=== PATIENT | male | born 1980 | race Caucasian/White ===

== ENCOUNTER 2019-10-10 16:01 | Emergency (ER) | payer OTHER, SELFPAY ==
--- NOTE | ~2019-10-10 | XR_ITS ---
XR ankle RT min 3V DATE: 10/10/2019 16:25 INDICATION: Twisting injury, lateral pain. TECHNIQUE: 4 views COMPARISON: None FINDINGS: There is prominent anterolateral soft tissue swelling and evidence of ankle joint effusion. There is suggestion of small cortical avulsion fracture from the distal anterior margin of the tibia. Otherwise no fracture or dislocation of the ankle or disruption of the ankle mortise is detected. IMPRESSION: Probable small cortical avulsion fractures from the anterior distal tibial epiphysis area . Ankle joint effusion and anterolateral ankle soft tissue swelling Reviewed, dictated and finalized at location B. MANAGER IMPRESSION: Probable small cortical avulsion fractures from the anterior distal tibial epiphysis area. Ankle joint effusion and anterolateral ankle soft tissue swelling
[2019-10-10 16:25] VITALS: BP 133/81; PULSE 96; RESP 20; TEMP 36.7; O2SAT 99
[2019-10-10] MEDS: KETOROLAC 30 MG/ML VIAL (*BKC) 60 MG IM (17:19)
--- NOTE | 2019-10-10 17:25 | ED.LOWEXIN ---
HPI - Extremity Injury (Lower) General Chief Complaint: Extremity Injury, Lower Stated Complaint: r ankle pain Time Seen by Provider: 10/10/19 16:55 Source: patient Mode of arrival: other ( Antalgic gait) Limitations: other ( ankle pain) History of Present Illness HPI Narrative: Osmani is a 38-year-old male patient he states that just prior to coming to the emergency room, he jumped into a ditch and twisted his right ankle. He he twisted it inward. He has swelling to the lateral malleolus. There is no open wound. He rates the pain 8 8 or 9. No history of previous injury to the ankle. MD complaint: ankle injury Onset (ago): minute(s) ( Just [employer]) Injury: Right: ankle Type of Injury: inversion Place: other ( jumped into a ditch) Severity: moderate Severity scale (1-10): 8 Relieving factors: other ( better with rest and elevation and better after Toradol injection.) Exacerbating factors: weight bearing, movement and palpation Context: jumping and other ( See HPI narrative) Associated symptoms: swelling, able to partially bear weight and other ( antalgic gait) Other symptoms: other ( no other symptoms) Treatments prior to arrival: other ( none) Review of Systems Review of Systems: All systems reviewed & are unremarkable except as noted in HPI and below Constitutional: Constitutional: Reports no additional constitutional complaints, Denies chills and Denies fever(s) Eyes: Eyes: Reports as per HPI and Denies change in vision ENT: Reports system reviewed and no additional complaints, except as documented, Denies dizziness and Denies sore throat Cardiovascular: Cardiovascular: Reports as per HPI, Reports no additional cardiovascular complaints, Denies chest pain and Denies radiating jaw, neck or arm pain Respiratory: Respiratory: Reports as per HPI, Denies cough and Denies dyspnea Gastrointestinal: Gastrointestinal: Reports as per HPI, Denies abdominal pain, Denies nausea and Denies vomiting Genitourinary: Genitourinary: Reports no additional male genitourinary complaints Musculoskeletal: Musculoskeletal: Reports no additional musculoskeletal complaints and Denies back pain Comments: pain and swelling to right ankle Neurologic: Reports system reviewed and no additional complaints, except as documented, Denies vertigo, Denies dizziness, Denies syncope and Denies focal weakness Psychiatric: Psychiatric: Reports no additional psychiatric complaints and Reports anxiety Endocrine: Endocrine: Reports no additional endocrine complaints and Denies polydipsia Hematologic/Lymphatic: Hematologic/Lymphatic: Reports no additional hematologic/lymphatic complaints, Denies easy bleeding and Denies easy bruising Allergic/Immunologic: Allergic/Immunologic: Reports no additional allergic/immunologic complaints, Denies lip swelling and Denies tongue swelling PMFSH Past Medical History Medical History (Updated 10/10/19 @ 18:49 by Mike Westfall MD) No pertinent past medical history Surgical History Surgical History (Updated 10/10/19 @ 17:31 by Mike Westfall MD) History of appendectomy Family History Family History (Updated 10/10/19 @ 17:31 by Mike Westfall MD) Mother No problems noted. Father No problems noted. Social History Social History (Updated 10/10/19 @ 17:32 by Mike Westfall MD) Smoking status: Current every day smoker Additional smoking assessment comments: smokes 1 pack per day Alcohol use details: denies alcohol use Substance use: never Exam Const: General: no acute distress ( moderate distress); No diaphoretic Nutritional Appearance: thin Orientation/consciousness: patient oriented x3 Limitations: physical limitations ( antalgic gait due to ankle pain) HENMT: Head: normal to inspection Ears: TM's normal bilaterally and EAC's normal General nose exam: Normal nares present Mouth: Yes moist mucous membranes Eyes: Pupils: Equal, round and reactive pupils present
--- NOTE | 2019-10-10 18:01 | PC.NURSE ---
DR JIMENEZ CALLED FOR ORTHO CONSULT
[2019-10-10 19:09] VITALS: RESP 15
== END 2019-10-10 19:10 | disposition home or self-care (01) ==
PROVIDERS: Emergency Provider Surgery; PCP Internal Medicine
DX: S93.401A Sprain of unspecified ligament of right ankle, initial encounter (principal); X50.1XXA Overexertion from prolonged static or awkward postures, initial encounter
CPT/HCPCS: 73610; 96372; 99282; 99283; J1885; L2112

== ENCOUNTER 2020-01-27 13:43 | Emergency (ER) | payer OTHER, SELFPAY ==
--- NOTE | 2020-01-27 13:46 | ED.OVERDOSE ---
HPI - Overdose General Chief Complaint: Overdose Stated Complaint: ambulance Time Seen by Provider: 01/27/20 13:45 Source: patient and EMS Mode of arrival: EMS Limitations: no limitations History of Present Illness HPI Narrative: Patient found unresponsive and a call our with windows rolled up. Initially had oral airway placed. Here is bagged and then given Narcan for possible drug abuse. He responded but continued to be confused. Patient now breathing on his own without any difficulty. He is oriented he knows where he is at. complaint: accidental overdose Onset (ago): hour(s) (1) Timing confirmed by: family member Intent: other (Chronic drug use) How Overdose Was Discovered: family/friend present at time Context: Accidental Overdose: wanted to get high (Inhaled Heroin) Associated symptoms: paranoia and lethargy Treatments Prior to Arrival: oxygen and narcan (4 mg) Related Data Home Medications Medication Instructions Recorded Confirmed No Home Medications 01/27/20 01/27/20 Allergies Allergy/AdvReac Type Severity Reaction Status Date / Time No Known Allergies Allergy Verified 01/27/20 13:50 Review of Systems Constitutional: Constitutional: Reports chills Eyes: Eyes: Reports no additional eye complaints Cardiovascular: Cardiovascular: Reports no additional cardiovascular complaints PMFSH Past Medical History Medical History No pertinent past medical history Surgical History Surgical History History of appendectomy Family History Family History Mother No problems noted. Father No problems noted. Social History Social History (Updated 01/27/20 @ 14:00 by Marvin Bartholomew MD) Smoking status: Current every day smoker Additional smoking assessment comments: smokes 1 pack per day Alcohol intake: unknown Substance use: current Substance use type: heroin and inhalants Exam Const: General: no acute distress and confusion Nutritional Appearance: thin Orientation/consciousness: patient oriented x3 Limitations: altered mental status HENMT: Head: normal to inspection Ears: external ears normal General nose exam: Normal external nose present Face and sinus: normal facial exam Mouth: Yes lip normal Eyes: Conjunctivae: conjunctivae normal Pupils: Dilated pupils bilaterally EOM: EOMs intact bilaterally Neck: Neck: normal visual inspection Resp: Effort & Inspection: normal respiratory effort Auscultation: clear to auscultation bilaterally Cardio: Rate: regular rate Rhythm: regular rhythm GI: GI Palp: Yes Soft to palpation Auscultation: normal bowel sounds Back/Spine/Pelvis: Cervical Spine: cervical ROM normal Thoracic/Lumbar Spine: thoraco-lumbar ROM normal Skin: General skin exam: normal color Rashes: no rashes Neuro: General: patient oriented x3, moves all extremities and no focal motor deficits Motor exam (neuro): 5/5 motor strength present throughout Extrem: General: normal to inspection and no pedal edema Psych: Appearance: disheveled Attitude: cooperative Thought content: Yes Hallucination(s) present ( Auditory) Course Course Emergency Course: patient refused IV for IV fluids. I felt that he should have some IV fluids since he was sitting in a hot car when he was discovered. Patient eloped out the back door. Vital Signs Vital signs: Vital Signs Temperature 36.4 C L 01/27/20 13:51 Pulse Rate 91 01/27/20 13:51 Respiratory Rate 14 01/27/20 13:51 Blood Pressure 176/94 H 01/27/20 13:51 Pulse Oximetry 95 01/27/20 13:51 Temperature 36.4 C L 01/27/20 13:51 Pulse Rate 91 01/27/20 13:51 Respiratory Rate 14 01/27/20 13:51 Blood Pressure 176/94 H 01/27/20 13:51 Pulse Oximetry 95 01/27/20 13:51 MDM - Overdose Lab Data Result diagrams: 01/27/20 14:09
[2020-01-27 13:51] VITALS: BP 176/94; PULSE 91; RESP 14; TEMP 36.4; O2SAT 95
[2020-01-27 14:13] LABS: Basophils Absolute Auto 0.02 K/mm3 (0.00-0.10); Basophils Percent Auto 0.4 % (0.0-1.0); Eosinophils Absolute Auto 0.14 K/mm3 (0.02-0.50); Eosinophils Percent Auto 2.9 % (1.0-6.0); Hematocrit 44.1 % (40.0-54.0); Hemoglobin 14.5 g/dL (14.0-18.0); Immature Granulocyte Absolute 0.04 K/mm3 (0.00-0.00); Immature Granulocyte Percent A 0.8 % (0.0-0.0); Lymphocytes Absolute Auto 1.49 K/mm3 (1.10-4.50); Lymphocytes Percent Auto 31.1 % (18.0-42.0); Mean Corpuscular HGB Conc 32.9 g/dL (32.0-36.0); Mean Corpuscular Hemoglobin 30.1 pg (27.0-31.0); Mean Corpuscular Volume 91.5 fL (78.0-102.0); Mean Platelet Volume 9.5 fl (8.7-11.0); Monocytes Absolute Auto 0.31 K/mm3 (0.10-0.90); Monocytes Percent Auto 6.5 % (2.0-11.0); Neutrophils Absolute Auto 2.8 K/mm3 (1.7-7.2); Neutrophils Percent Auto 58.3 % (50.0-70.0); Platelet Count Result 311 K/mm3 (150-420); Red Blood Count 4.82 M/mm3 (4.70-6.10); Red Cell Distribution Width 12.4 % (11.6-14.4); White Blood Count 4.8 K/mm3 (4.8-10.8)
[2020-01-27 14:28] LABS: Alanine Aminotransferase 43 U/L (16-63); Albumin Level 4.3 g/dL (3.4-5.0); Alkaline Phosphatase 103 U/L (46-116); Anion Gap 17.7 mmol/L (7-16); Aspartate Amino Transferase 60 U/L (15-37); Bilirubin,Total 0.4 mg/dL (0.00-1.00); Blood Urea Nitrogen 10 mg/dL (7-18); Calcium 9.4 mg/dL (8.5-10.1); Carbon Dioxide 27 mmol/L (21-32); Chloride 101 mmol/L (98-108); Estimated Glomerular Filt Rate 58; Glucose 246 mg/dL (70-99); Magnesium 2.4 mg/dL (1.8-2.4); Osmolality Calculated 301 mOsm/kg (285-295); Potassium 3.7 mmol/L (3.5-5.1); Salicylate 3.9 mg/dL (2.8-20.0); Sodium 142 mmol/L (136-145); Total Protein 7.6 g/dL (6.4-8.2)
[2020-01-27 14:29] LABS: Acetaminophen 0 ug/mL (10-30); Ethanol < 3 mg/dL (0-6)
[2020-01-27 15:06] LABS: Hemoglobin A1C 5.6 % (<5.7)
--- NOTE | 2020-01-27 15:14 | PC.NURSE ---
IV/IV FLUIDS OFFERED - PT REFUSED
[2020-01-27 15:51] LABS: Amphetamine Screen Urine Positive (Negative); Barbiturate Screen Urine Negative (Negative); Benzodiazepines Screen Urine Negative (Negative); Cannabinoid Screen Urine Positive (Negative); Cocaine Screen Urine Negative (Negative); Methadone Screen Urine Negative (Negative); Opiate Screen Urine Negative (Negative); Phencyclidine Screen Urine Negative (Negative)
--- NOTE | 2020-01-27 16:07 | PC.NURSE ---
PT WALKED TO BATHROOM, NOW NOT FOUND IN THE DEPARTMENT - APPARENT ELOPEMENT
--- NOTE | 2020-01-27 16:18 | PC.NURSE ---
[facility] BRINGS PATIENT BACK IN TO AWAIT INVOLUNTARY ADMISSION - PT MOOD HAS ESCALATED, PT SCREAMING AT TRAVEL SERVICES PROFESSIONAL - AWAITING MOTHER TO FILL OUT PETITION
== END 2020-01-27 16:05 | disposition left against medical advice (07) ==
PROVIDERS: Emergency Provider Emergency Medicine; PCP Internal Medicine
DX: T50.901A Poisoning by unspecified drugs, medicaments and biological substances, accidental (unintentional), initial encounter (principal)
CPT/HCPCS: 36415; 80053; 80307; 83036; 83735; 85025; 99282; 99283

== ENCOUNTER 2020-03-01 14:43 | Emergency (ER) | payer OTHER, SELFPAY ==
[2020-03-01 14:43] VITALS: BP 97/68; PULSE 99; RESP 22; TEMP 36.6; O2SAT 96
[2020-03-01 14:51] VITALS: RESP 22; O2SAT 96
--- NOTE | 2020-03-01 15:04 | PC.NURSE ---
1450 PT STATES HE DOES NOT WANT TREATMENT AT [facility] AND DOES NOT WANT TO SEE THE ERP FOR MEDICAL EVALUATION AND IS SIGNING OUT AGAISNT MEDICAL ADVICE RIGHT NOW. RN ATTEMPTED TO EDUCATE PATIENT WITHOUT SUCCESS. PT IS ALERT AND ORIENTED X3 AND ABLE TO MAKE ALL DECISIONS. PT SIGNED AMA FORM, IV ACCESS WAS REMOVED, AND PT AMBULATED FROM THE BUILDING WITH ALL BELONGINGS.
--- NOTE | 2020-03-01 15:06 | PC.NURSE ---
E-CIGARETTE/VAPE PEN LEFT IN THE BED, ATTEMPTED TO CALL PHONE NUMBER WITH NO SUCCESS.
== END 2020-03-01 14:51 | disposition left against medical advice (07) ==
LOC: CHSED 14:47
PROVIDERS: Emergency Provider Emergency Medicine
DX: Z53.8 Procedure and treatment not carried out for other reasons (principal)
CPT/HCPCS: 99199

== ENCOUNTER 2020-05-09 12:40 | Emergency (ER) | payer OTHER, SELFPAY ==
[2020-05-09 12:40] VITALS: BP 146/96; PULSE 86; RESP 16; TEMP 36.7; O2SAT 98
--- NOTE | 2020-05-09 13:03 | ED.DENTAL ---
HPI - Dental/Oral General Chief complaint: Dental/Oral Stated complaint: tooth ache Time Seen by Provider: 05/09/20 13:03 History of Present Illness HPI Narrative: 39-year-old male patient is here with pain in the right upper molars. He states that the pain started yesterday and this morning he woke up with swelling of the right cheek and his right eye almost shut. He denies any fever or chills. He states that he has had some trouble with his teeth in the past and he is planning to see a dentist in the near future. He denies any known drug allergies. He does admit to smoking and using marijuana. He denies any other drugs. Related Data Allergies Allergy/AdvReac Type Severity Reaction Status Date / Time No Known Allergies Allergy Verified 01/27/20 13:50 Review of Systems Review of Systems: All systems reviewed & are unremarkable except as noted in HPI and below PMFSH Past Medical History Medical History No pertinent past medical history Surgical History Surgical History History of appendectomy Family History Family History Mother No problems noted. Father No problems noted. Social History Social History Smoking status: Current every day smoker Additional smoking assessment comments: smokes 1 pack per day Alcohol intake: unknown Substance use: current Substance use type: heroin and inhalants Exam Const: General: no acute distress and alert Orientation/consciousness: patient oriented x3 HENMT: Other: Patient has an obvious right facial swelling extending into the infraorbital area. No erythema is noted to the swelling. There is mild tenderness on palpation. Pupils are equal and reactive. Patient does have very poor dentition with a lot of teeth missing and Oddi gave to the base. Of significance is that the patient has no teeth from 1-3 and then 4 and 5 are severely decayed. No specific gingival margin inflammation or redness is noted. Resp: Effort & Inspection: normal respiratory effort Auscultation: clear to auscultation bilaterally Cardio: Rate: regular rate Neuro: General: patient oriented x3 and moves all extremities Speech: normal speech Gait exam (Neuro): Normal gait present Extrem: General: normal to inspection Psych: Mental Status: mental status grossly normal Course Course Emergency Course: Patient is aware of the discharge plans and medications will be prescribed. He has been encouraged to follow-up with a dentist. Vital Signs Vital signs: Vital Signs Temperature 36.7 C 05/09/20 12:40 Pulse Rate 86 05/09/20 12:40 Respiratory Rate 16 05/09/20 12:40 Blood Pressure 146/96 H 05/09/20 12:40 Pulse Oximetry 98 05/09/20 12:40 Temperature 36.7 C 05/09/20 12:40 Pulse Rate 86 05/09/20 12:40 Respiratory Rate 16 05/09/20 12:40 Blood Pressure 146/96 H 05/09/20 12:40 Pulse Oximetry 98 05/09/20 12:40 Discharge Plan Discharge Clinical Impression: Toothache, Dental abscess, Dental caries Patient Disposition: Home, Self-Care Condition: Stable Instructions: Antibiotic Form Additional Instructions: Soft diet Stay well hydrated. Tylenol 500 mg and Ibuprofen 400 mg every 8 hours as needed for pain. Follow up with the dentist in 5-7 days or sooner if worse. Prescriptions: New clindamycin HCl 150 mg capsule 150 mg PO Q6H 10 Days Qty: 40 RF: 0 Follow-up/Referrals: UNKNOWN,DOCTOR [Primary Care Provider] - Stand Alone Forms: Work/School Release IP Time of Disposition: 13:18
[2020-05-09] MEDS: KETOROLAC (*BKC) 60 MG/2 ML VIAL IM (13:15)
[2020-05-09 13:45] VITALS: BP 139/79; PULSE 90; RESP 15; O2SAT 100
== END 2020-05-09 13:48 | disposition home or self-care (01) ==
PROVIDERS: Emergency Provider Emergency Medicine
DX: K04.7 Periapical abscess without sinus (principal); K02.9 Dental caries, unspecified
CPT/HCPCS: 96372; 99283; J1885

== ENCOUNTER 2020-06-04 12:44 | Emergency (ER) | payer OTHER, SELFPAY ==
--- NOTE | ~2020-06-04 | XR_ITS ---
EXAMINATION: XR ankle RT min 3V EXAM DATE: 06/04/2020 13:17 INDICATION: Initial encounter following injury, with pain of the right ankle. Injury 2 days ago. TECHNIQUE: Right ankle frontal, lateral and oblique projections obtained and reviewed. Comparison is made to prior examination from 10/10/2019. FINDINGS: The right ankle mortise appears intact. Small ossification anterior to the tibial tip seen on lateral could be sequela from the injury in October. There are no acute fractures or dislocation s identified. There is no subcutaneous gas. The soft tissue is unremarkable. There are no radiopa que foreign bodies. IMPRESSION: No acute osseous findings. Reviewed, dictated and finalized at location A. IMPRESSION: No acute osseous findings.
--- NOTE | ~2020-06-04 | XR_ITS ---
EXAMINATION: XR shoulder LT min 2V DATE: 06/04/2020 13:18 INDICATION: Left shoulder pain. TECHNIQUE: 4 views of left shoulder were obtained. COMPARISON: None. FINDINGS: Bone alignment is normal. No fracture. Acromioclavicular joint is normal. There is mild gle nohumeral joint osteoarthritis characterized by tiny marginal osteophytes. IMPRESSION: 1. Mild left glenohumeral joint osteoarthritis. Reviewed, dictated and finalized at location A.
[2020-06-04 13:03] VITALS: BP 122/78; PULSE 101; RESP 18; TEMP 37.2; O2SAT 94
--- NOTE | 2020-06-04 13:30 | ED.LOWEXIN ---
HPI - Extremity Injury (Lower) General Chief Complaint: Extremity Injury, Lower Stated Complaint: injury to left shoulder Time Seen by Provider: 06/04/20 13:32 History of Present Illness HPI Narrative: 39-year-old male patient is here with chief complaints of injury to his right ankle and left shoulder after he fell off the roof 2 days ago. Patient states that he was replacing the shingles. He states that he lost the balance and fell and was able to ambulate without any help since then. Patient states that the pain in the right ankle is moderate and he is able to ambulate. He denies any numbness or tingling to his toes or his arm. He denies any other injuries. Denies any of swelling or deformity to the shoulder. He denies any chest injury. He denies any associated shortness of breath. He denies any abdominal pain or injury or injury to the back. Has had an old injury to the right ankle but never a fracture. Related Data Home Medications Medication Instructions Recorded Confirmed No Home Medications 06/04/20 06/04/20 Allergies Allergy/AdvReac Type Severity Reaction Status Date / Time No Known Allergies Allergy Verified 06/04/20 13:10 Review of Systems Review of Systems: All systems reviewed & are unremarkable except as noted in HPI and below [facility] Social History Social History Smoking status: Current every day smoker Additional smoking assessment comments: smokes 1 pack per day Alcohol intake: unknown Substance use: current Substance use type: heroin and inhalants Gender identity (if verbalized by the patient): Male Exam Const: General: no acute distress and alert Orientation/consciousness: patient oriented x3 Eyes: Pupils: Equal, round and reactive pupils present Chest: Chest palpation & inspection: normal inspection of the chest Resp: Effort & Inspection: normal respiratory effort Auscultation: clear to auscultation bilaterally Cardio: Rate: regular rate Rhythm: regular rhythm GI: GI Palp: Yes Soft to palpation and No Tenderness to palpation present (GI) Skin: General skin exam: normal color Rashes: no rashes Wounds: no wounds Extrem: General: normal to inspection and no pedal edema Other: Left Shoulder; no deformity or swelling. No bruising. There is no limitation of the range of motion. Distal neurovascular status is intact. Right Ankle : There is no deformity or swelling. There is some tenderness on palpation of the lateral malleolus in the anterior area. There is no effusion noted. Psych: Mental Status: mental status grossly normal Course Course Emergency Course: An Brigido wrap has been applied to the right ankle. The patient is aware of the negative x-rays as well as the discharge plans. Vital Signs Vital signs: Vital Signs Temperature 37.2 C 06/04/20 13:03 Pulse Rate 101 H 06/04/20 13:03 Respiratory Rate 18 06/04/20 13:03 Blood Pressure 122/78 06/04/20 13:03 Pulse Oximetry 94 06/04/20 13:03 Temperature 37.2 C 06/04/20 13:03 Pulse Rate 101 H 06/04/20 13:03 Respiratory Rate 18 06/04/20 13:03 Blood Pressure 122/78 06/04/20 13:03 Pulse Oximetry 94 06/04/20 13:03 Discharge Plan Discharge Clinical Impression: Ankle sprain and strain, Left shoulder pain Patient Disposition: Home, Self-Care Condition: Stable Instructions: Ankle Sprain (ED), Fall Prevention (ED) Additional Instructions: Take tylenol or Ibuprofen as needed for pain Follow up with your doctor as needed. Prescriptions: No Action No Home Medications RF: 0 Follow-up/Referrals: UNKNOWN,DOCTOR [Primary Care Provider] - Time of Disposition: 13:57
[2020-06-04 14:05] VITALS: RESP 16
== END 2020-06-04 14:05 | disposition home or self-care (01) ==
PROVIDERS: Emergency Provider Emergency Medicine
DX: S93.401A Sprain of unspecified ligament of right ankle, initial encounter (principal); M25.512 Pain in left shoulder; W17.89XA Other fall from one level to another, initial encounter
CPT/HCPCS: 73030; 73610; 99282; 99284

== ENCOUNTER 2020-11-07 11:00 | Emergency (ER) | payer OTHER, SELFPAY ==
[2020-11-07 11:00] VITALS: BP 125/94; PULSE 113; RESP 15; TEMP 36.7; O2SAT 96
[2020-11-07 11:24] VITALS: RESP 17
--- NOTE | 2020-11-07 11:28 | ED.OVERDOSE ---
HPI - Overdose General Chief Complaint: Overdose Stated Complaint: ambulance Time Seen by Provider: 11/07/20 11:28 Source: patient and EMS Mode of arrival: EMS Limitations: no limitations History of Present Illness HPI Narrative: Patient is brought in by EMS. He says he snorted some heroin, and evidently became unresponsive and passed out. He was not breathing well and someone called 911. The paramedics arrived and gave him some Narcan. After this he woke up and was responsive to them. complaint: accidental overdose Onset (ago): minute(s) Intent: other (pain relief) How Overdose Was Discovered: family/friend present at time Context: Accidental Overdose: other (seeking pain relief, ) Treatments Prior to Arrival: oxygen and narcan Related Data Home Medications Medication Instructions Recorded Confirmed No Home Medications 06/04/20 11/07/20 Allergies Allergy/AdvReac Type Severity Reaction Status Date / Time No Known Allergies Allergy Verified 06/04/20 13:10 Review of Systems Constitutional: Constitutional: Reports no additional constitutional complaints Eyes: Eyes: Reports no additional eye complaints ENT: Reports system reviewed and no additional complaints, except as documented Cardiovascular: Cardiovascular: Reports no additional cardiovascular complaints Respiratory: Respiratory: Reports no additional respiratory complaints Gastrointestinal: Gastrointestinal: Reports no additional gastrointestinal complaints Genitourinary: Genitourinary: Reports no additional male genitourinary complaints Musculoskeletal: Musculoskeletal: Reports no additional musculoskeletal complaints Integumentary/Breasts: Skin/Breast: Reports system reviewed and no additional complaints, except as docu Neurologic: Reports system reviewed and no additional complaints, except as documented Psychiatric: Psychiatric: Reports no additional psychiatric complaints Endocrine: Endocrine: Reports no additional endocrine complaints Hematologic/Lymphatic: Hematologic/Lymphatic: Reports no additional hematologic/lymphatic complaints Allergic/Immunologic: Allergic/Immunologic: Reports no additional allergic/immunologic complaints [facility] Past Medical History Medical History (Updated 11/07/20 @ 12:00 by Marvin Whitehead MD) No pertinent past medical history Surgical History Surgical History History of appendectomy Family History Family History Mother No problems noted. Father No problems noted. Social History Social History Smoking status: Current every day smoker Additional smoking assessment comments: smokes 1 pack per day Alcohol intake: unknown Substance use: current Substance use type: heroin and inhalants Gender identity (if verbalized by the patient): Male Exam Const: General: no acute distress and alert Orientation/consciousness: patient oriented x3 HENMT: Head: normal to inspection Ears: external ears normal General nose exam: Normal external nose present Face and sinus: normal facial exam Throat: posterior oropharynx normal Eyes: Conjunctivae: conjunctivae normal Neck: Neck: normal visual inspection Chest: Chest palpation & inspection: normal inspection of the chest Resp: Effort & Inspection: normal respiratory effort Auscultation: clear to auscultation bilaterally Cardio: Rate: regular rate Rhythm: regular rhythm GI: GI Palp: Yes Soft to palpation (nontender) Skin: General skin exam: normal color Neuro: General: patient oriented x3 and moves all extremities Extrem: General: normal to inspection Psych: Appearance: grossly normal Mental Status: mental status grossly normal Thought content: Yes Normal thought content present Course Course Emergency Course: He was wide awake by the time he got here. He denied any th
[2020-11-07 12:05] VITALS: PULSE 100; RESP 20; TEMP 36.7; O2SAT 95
== END 2020-11-07 12:10 | disposition home or self-care (01) ==
PROVIDERS: Emergency Provider Emergency Medicine; PCP Internal Medicine
DX: T50.901A Poisoning by unspecified drugs, medicaments and biological substances, accidental (unintentional), initial encounter (principal)
CPT/HCPCS: 99283; A9270

== ENCOUNTER 2020-11-13 14:59 | Emergency (ER) | payer OTHER, SELFPAY ==
--- NOTE | ~2020-11-13 | XR_ITS ---
EXAMINATION: XR wrist LT min 3V EXAM DATE: 11/13/2020 15:42 INDICATION: No known recent injury provided at this time. Pain of the left wrist, ulna. TECHNIQUE: Left wrist frontal, frontal with ulnar deviation, oblique and lateral projections obtained and reviewed. There is no prior study for comparison. FINDINGS: Left wrist scapholunate joint space is maintained. There are no acute fractures or dislocat ions identified. There is no subcutaneous gas. The soft tissue is unremarkable. There are no radi opaque foreign bodies. IMPRESSION: 1. Unremarkable XR wrist LT min 3V exam. Reviewed, dictated and finalized at location B. 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
[2020-11-13 15:49] VITALS: BP 123/87; PULSE 114; RESP 16; TEMP 36.7; O2SAT 96
--- NOTE | 2020-11-13 16:12 | ED.UPPEXIN ---
HPI - Extremity Injury (Upper) General Chief Complaint: Extremity Injury, Upper Stated Complaint: Hurt L wrist Source: patient Mode of arrival: ambulatory Limitations: no limitations History of Present Illness HPI narrative: was working in the yard and felt a pop and wrist hurt. No real injury, no trauma complaint: injury to: left Other Extremity Injury: Left: wrist Other injuries: none Place: home Severity: mild Relieving factors: none Exacerbating factors: none Associated symptoms: denies other symptoms Related Data Home Medications Medication Instructions Recorded Confirmed No Home Medications 06/04/20 11/07/20 Allergies Allergy/AdvReac Type Severity Reaction Status Date / Time No Known Allergies Allergy Verified 06/04/20 13:10 Review of Systems Review of Systems: All systems reviewed & are unremarkable except as noted in HPI and below PMFSH Past Medical History Medical History No pertinent past medical history Surgical History Surgical History History of appendectomy Family History Family History Mother No problems noted. Father No problems noted. Social History Social History Smoking status: Current every day smoker Additional smoking assessment comments: smokes 1 pack per day Alcohol intake: unknown Substance use: current Substance use type: heroin and inhalants Gender identity (if verbalized by the patient): Male Exam Const: General: no acute distress Nutritional Appearance: thin Orientation/consciousness: patient oriented x3 HENMT: Head: normal to inspection Eyes: Conjunctivae: conjunctivae normal Pupils: Equal, round and reactive pupils present Neck: Neck: normal visual inspection Chest: Chest palpation & inspection: normal inspection of the chest Resp: Effort & Inspection: normal respiratory effort Auscultation: clear to auscultation bilaterally Cardio: Rate: regular rate Rhythm: regular rhythm GI: Inspection: non-distended GI Palp: Yes Soft to palpation and No Tenderness to palpation present (GI) : Testes: Testes normal Skin: General skin exam: normal color Neuro: General: patient oriented x3 and moves all extremities Extrem: General: normal to inspection Other: no swelling, no bruising, no deformity, full ROM Psych: Mental Status: mental status grossly normal Course Vital Signs Vital signs: Vital Signs Temperature 36.7 C 11/13/20 15:49 Pulse Rate 114 H 11/13/20 15:49 Respiratory Rate 16 11/13/20 15:49 Blood Pressure 123/87 11/13/20 15:49 Pulse Oximetry 96 11/13/20 15:49 Temperature 36.7 C 11/13/20 15:49 Pulse Rate 114 H 11/13/20 15:49 Respiratory Rate 16 11/13/20 15:49 Blood Pressure 123/87 11/13/20 15:49 Pulse Oximetry 96 11/13/20 15:49 Discharge Plan Discharge Patient Disposition: Home, Self-Care Condition: Stable Instructions: Antibiotic Form Prescriptions: No Action No Home Medications RF: 0 Follow-up/Referrals: Donny Garcia MD [Primary Care Provider] - Time of Disposition: 16:15
== END 2020-11-13 16:18 | disposition home or self-care (01) ==
PROVIDERS: Emergency Provider Emergency Medicine; PCP Internal Medicine
DX: M79.602 Pain in left arm (principal)
CPT/HCPCS: 73110; 99282; 99283

== ENCOUNTER 2021-06-14 15:15 | Emergency (ER) | payer OTHER, SELFPAY ==
[2021-06-14 15:30] VITALS: BP 127/80; PULSE 82; RESP 14; TEMP 36.8; O2SAT 98
--- NOTE | 2021-06-14 16:31 | ED.DENTAL ---
HPI - Dental/Oral General Chief complaint: Dental/Oral Stated complaint: abscess tooth Time Seen by Provider: 06/14/21 15:17 Source: patient and RN notes reviewed Mode of arrival: ambulatory Limitations: no limitations History of Present Illness Complaint: tooth pain Location: Tooth # (16) Onset (ago): day(s) (1) Duration: constant Severity: moderate Severity scale (1-10): 6 Relieving factors: nothing Exacerbating factors: chewing Context: history of dental caries Associated symptoms: ear pain Treatment prior to arrival: none Related Data Allergies Allergy/AdvReac Type Severity Reaction Status Date / Time No Known Allergies Allergy Verified 06/14/21 16:41 Review of Systems Review of Systems: All systems reviewed & are unremarkable except as noted in HPI and below ENT: Reports as per HPI (toothache.) [facility] Past Medical History Medical History Dental caries Toothache Exam Const: General: no acute distress and alert Nutritional Appearance: well nourished Orientation/consciousness: patient oriented x3 Limitations: no limitations HENMT: Head: normal to inspection Ears: external ears normal and TM's normal bilaterally General nose exam: Normal external nose present and Normal nares present Face and sinus: normal facial exam Mouth: Yes moist mucous membranes Other: no acute facial swelling or tenderness Eyes: Conjunctivae: conjunctivae normal Pupils: Equal, round and reactive pupils present EOM: EOMs intact bilaterally Neck: Neck: normal visual inspection and no lymphadenopathy Chest: Chest palpation & inspection: normal inspection of the chest Resp: Effort & Inspection: normal respiratory effort Auscultation: clear to auscultation bilaterally Cardio: Rate: regular rate Rhythm: regular rhythm GI: GI Palp: Yes Soft to palpation and No Tenderness to palpation present (GI) Percussion: Yes normal to percussion : General: Yes no CVA tenderness Male General Exam: Yes normal external exam Testes: Testes normal Back/Spine/Pelvis: Back: no CVA tenderness Skin: General skin exam: normal color Rashes: no rashes Neuro: General: patient oriented x3, moves all extremities, no meningeal signs, no focal motor deficits and CN's II-XI intact bilaterally Extrem: General: normal to inspection and no pedal edema Psych: Appearance: grossly normal and well kempt Mental Status: mental status grossly normal Affect: normal affect Thought content: Yes Normal thought content present Course Course Emergency Course: pt was stable and less pain-ful in the ED> Reevaluation(s) Date: 06/14/21 Time: 15:58 Vital Signs Vital signs: Vital Signs Temperature 36.8 C 06/14/21 15:30 Pulse Rate 82 06/14/21 15:30 Respiratory Rate 14 06/14/21 15:30 Blood Pressure 127/80 06/14/21 15:30 Pulse Oximetry 98 06/14/21 15:30 Temperature 36.8 C 06/14/21 15:30 Pulse Rate 82 06/14/21 15:30 Respiratory Rate 16 06/14/21 16:45 Blood Pressure 127/80 06/14/21 15:30 Pulse Oximetry 98 06/14/21 15:30 MDM - Dental/Oral Differential Diagnosis Differential diagnosis: Likely dental caries, toothache and dental abscess Medical Records Attestation: I reviewed the patient's medical records. Critical Care Time Critical Care Time Critical Care Time: No Total Critical Care Time: 0 Discharge Plan Discharge Clinical Impression: Toothache, Dental caries Patient Disposition: Home, Self-Care Condition: Stable Instructions: Antibiotic Form, Toothache (ED) Additional Instructions: Home. May RTC prn. PMD in 1-2 days. Rx below. Dentist RUKHSANA Prescriptions: New amoxicillin 875 mg tablet 875 mg PO Q12H Qty: 20 RF: 0 ibuprofen 800 mg tablet 800 mg PO TID Qty: 20 RF: 0 omeprazole magnesium [Prilosec OTC] 20 mg tablet,delayed release (DR/EC) 20 mg PO BID Qty: 20 RF: 0 amoxicillin 875 mg tablet 875 mg PO Q12H Qt
[2021-06-14 16:45] VITALS: RESP 16
[2021-06-14] MEDS: IBUPROFEN 400 MG TABLET 800 MG PO (16:45)
== END 2021-06-14 16:45 | disposition home or self-care (01) ==
PROVIDERS: Emergency Provider Emergency Medicine; PCP Surgery
DX: K08.89 Other specified disorders of teeth and supporting structures (principal); K02.9 Dental caries, unspecified
CPT/HCPCS: 99283; A9270

== ENCOUNTER 2023-04-03 09:50 | Emergency (ER) | payer OTHER, SELFPAY ==
--- NOTE | ~2023-04-03 | XR_ITS ---
EXAMINATION: XR knee LT 3V DATE: 04/03/2023 10:37 INDICATION: Lateral left knee pain post fall TECHNIQUE: AP, lateral and sunrise views of the left knee were obtained COMPARISON: None. FINDINGS: Alignment is normal. No fracture. Joint spaces appear normal. Large left knee joint effusion without layering lipohemarthrosis. Soft tissues are otherwise unremarkable. IMPRESSION: 1. Large left knee joint effusion without osseous abnormality. Reviewed, dictated and finalized at location A.
--- NOTE | ~2023-04-03 | XR_ITS ---
Lumbosacral Spine: AP and lateral views Clinical History: Pain Findings: The normal lordotic curve is maintained. The vertebral bodies and posterior elements are i ntact. The intervertebral disc spaces are preserved. The sacroiliac joints are normally outlined. Impression: No significant abnormality. Reviewed, dictated and finalized at [facility]. Impression: No significant abnormality.
[2023-04-03 09:52] VITALS: BP 119/73; PULSE 117; RESP 18; TEMP 37.7; O2SAT 95
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
[2023-04-03 11:30] VITALS: BP 134/67; PULSE 112; RESP 16; TEMP 36.9; O2SAT 96
--- NOTE | 2023-04-03 11:37 | PC.NURSE ---
spoke with judith at dr alejo office to set up appt for thursday at [facility]. will talk with dr cornelius and call patient to set up appt that is available. pt informed and given number for office. informed patient if no call by 3pm to call office.
== END 2023-04-03 11:30 | disposition home or self-care (01) ==
PROVIDERS: Emergency Provider Internal Medicine Critical Care Medicine; PCP Internal Medicine
DX: M25.462 Effusion, left knee (principal); M54.50 Low back pain, unspecified; V18.0XXA Pedal cycle driver injured in noncollision transport accident in nontraffic accident, initial encounter
CPT/HCPCS: 72100; 73562; 99284; L1830

== ENCOUNTER 2023-12-05 15:25 | Emergency (ER) | payer OTHER, SELFPAY ==
[2023-12-05] VITALS (17 sets, daily range): BP systolic 120–170; BP diastolic 69–88; PULSE 82–110; RESP 12–20; TEMP 36.7; O2SAT 76–98
--- NOTE | ~2023-12-05 | CT_ITS ---
EXAMINATION: CT brain wo con DATE: 12/05/2023 15:57 INDICATION: Drug overdose. TECHNIQUE: Computed tomography (CT) of the head was performed without intravenous contrast. The mA wa s adjusted according to patient size. Iterative reconstruction technique was employed. The dose-lengt h product was 605.33 mGy-cm. COMPARISON: None FINDINGS: There is no intracranial hemorrhage, acute infarction, or abnormal intracranial mass lesion . The ventricles are normal in size. The orbits are normal. The paranasal sinuses are clear. The mast oid air cells are normal. There is cerumen in the external auditory canals. IMPRESSION: 1. Normal brain. Reviewed, dictated and finalized at location A. IMPRESSION: 1. Normal brain.
--- NOTE | 2023-12-05 15:29 | ECG_ITS ---
Measurements Intervals [place] Rate: 93 P: 19 OR: 165 QRS: 13 QRSD: 90 T: 23 QT: 350 QTc: 436 Interpretive Statements SINUS RHYTHM VENTRICULAR PREMATURE COMPLEX BORDERLINE T WAVE ABNORMALITY- INFERIOR LEADS BASELINE ARTIFACT- I, III, AVR, AVL BORDERLINE ECG NO PREVIOUS ECG AVAILABLE FOR COMPARISON Electronically Signed On 12-05-2023 17:26:59 CDT by Carlos Peguero D.O.
[2023-12-05] MEDS: SODIUM CHLORIDE 0.9% IV 1,000 ML 999 ML IV CONT (15:40)
[2023-12-05] MEDS: NALOXONE HCL INJ 2 MG/2 ML AMP IV PUSH ×2 (15:40)
[2023-12-05 17:14] LABS: Base Excess ABG 3.6 mmol/L (0-2); HCO3 ABG 29.2 mmol/L (23-29); Oxygen Content ABG 16.7 %vol (16.0-22.0); Oxygen Saturation ABG 91.6 % (95-97); Oxyhemoglobin 89.1 % (94-100); PCO2 ABG 48.5 mmHg (35-45); PO2 ABG 62.9 mmHg (80-90); Total Hemoglobin 13.3 g/dL (12.0-18.0)
[2023-12-05 17:17] LABS: Device ROOM AIR; Modified Allen's Test Pass; Site Drawn RIGHT RADIAL
[2023-12-05 17:18] LABS: Basophils Absolute Auto 0.03 K/mm3 (0.00-0.10); Basophils Percent Auto 0.4 % (0.0-1.0); Eosinophils Absolute Auto 0.13 K/mm3 (0.02-0.50); Eosinophils Percent Auto 1.6 % (1.0-6.0); Hematocrit 38.8 % (40.0-54.0); Hemoglobin 12.6 g/dL (14.0-18.0); Immature Granulocyte Absolute 0.04 K/mm3 (0.00-0.00); Immature Granulocyte Percent A 0.5 % (0.0-0.0); Lymphocytes Absolute Auto 1.06 K/mm3 (1.10-4.50); Lymphocytes Percent Auto 13.4 % (18.0-42.0); Mean Corpuscular HGB Conc 32.5 g/dL (32-36); Mean Corpuscular Volume 89.4 fL (78.0-102.0); Monocytes Absolute Auto 0.57 K/mm3 (0.10-0.90); Monocytes Percent Auto 7.2 % (2.0-11.0); Neutrophils Absolute Auto 6.09 K/mm3 (1.70-7.20); Neutrophils Percent Auto 76.9 % (50.0-70.0); Platelet Count Result 299 K/mm3 (150-420); Red Blood Count 4.34 M/mm3 (4.70-6.10); Red Cell Distribution Width 12.9 % (11.6-14.4); White Blood Count 7.9 K/mm3 (4.8-10.8)
[2023-12-05 17:31] LABS: Partial Thromboplastin Time 29.1 Sec (23.9-30.70); Prothrombin Time 10.8 Seconds (9.50-12.1)
[2023-12-05 17:41] LABS: Lactic Acid Reflex 0.9 mmol/L (0.4-2.0)
[2023-12-05 17:42] LABS: Alanine Aminotransferase 31 U/L (16-63); Albumin Level 3.2 g/dL (3.4-5.0); Alkaline Phosphatase 72 U/L (46-116); Anion Gap 5 mmol/L (4-12); Aspartate Amino Transferase 22 U/L (15-37); Bilirubin,Total 0.2 mg/dL (0.00-1.00); Blood Urea Nitrogen 13 mg/dL (7-18); Calcium 8.4 mg/dL (8.5-10.1); Carbon Dioxide 31 mmol/L (21-32); Chloride 105 mmol/L (98-108); Estimated CRCL calculation 88 ml/min; Estimated Glomerular Filt Rate > 60; Glucose 98 mg/dL (70-99); Magnesium 1.9 mg/dL (1.8-2.4); Osmolality Calculated 292 mOsm/kg (285-295); Potassium 4.3 mmol/L (3.5-5.1); Sodium 141 mmol/L (136-145); Thyroid Stimulating Hormone 4.49 uIU/mL (0.36-3.74); Total Protein 6.2 g/dL (6.4-8.2)
--- NOTE | 2023-12-05 18:13 | ED.OVERDOSE ---
HPI - Overdose General Chief Complaint: Overdose Stated Complaint: overdose Time Seen by Provider: 12/05/23 15:28 Source: patient and family Mode of arrival: other ( unresponsive) History of Present Illness HPI Narrative: this is a 42-year-old male with a history of drug abuse was brought in by his brother unresponsive and had used, street name ice, was breathing had a pulse did respond to painful stimuli no fever chills no chest pain no shortness. complaint: accidental overdose Onset (ago): hour(s) Timing confirmed by: family member Context: Accidental Overdose: wanted to get high Related Data Home Medications Medication Instructions Recorded Confirmed No Home Medications 06/04/20 12/05/23 Allergies Allergy/AdvReac Type Severity Reaction Status Date / Time No Known Allergies Allergy Verified 12/05/23 16:20 Review of Systems Review of Systems: All systems reviewed & are unremarkable except as noted in HPI and below PMFSH Past Medical History Medical History Drug abuse No pertinent past medical history Surgical History Surgical History History of appendectomy Family History Family History Mother No problems noted. Father No problems noted. Social History Social History Smoking status: Current every day smoker Additional smoking assessment comments: smokes 1 pack per day Alcohol intake: unknown Alcohol use details: denies alcohol use Substance use: current Substance use type: crack/cocaine Gender identity (if verbalized by the patient): Male Exam Const: General: no acute distress Nutritional Appearance: well nourished Orientation/consciousness: patient oriented x3 Limitations: no limitations Eyes: Conjunctivae: conjunctivae normal Pupils: Equal, round and reactive pupils present Chest: Chest palpation & inspection: normal inspection of the chest Resp: Effort & Inspection: normal respiratory effort Auscultation: clear to auscultation bilaterally Cardio: Rate: regular rate Rhythm: regular rhythm GI: GI Palp: Yes Soft to palpation Auscultation: normal bowel sounds Back/Spine/Pelvis: Back: no CVA tenderness Skin: General skin exam: normal color Rashes: no rashes Wounds: no wounds Neuro: General: patient oriented x3, moves all extremities, no meningeal signs and no focal motor deficits Psych: Mental Status: mental status grossly normal Course Course Emergency Course: patient presented unresponsive after he had accidentally taken narcotic overdose was treated with 4mg IV nor can and patient did respond is alert awake oriented blood work revealed no significant abnormalities, CT scan of the brain was without any acute abnormalities. Vital Signs Vital signs: Vital Signs Temperature 36.7 C 12/05/23 15:30 Pulse Rate 110 H 12/05/23 15:30 Respiratory Rate 20 12/05/23 15:30 Blood Pressure 170/69 H 12/05/23 15:30 Pulse Oximetry 98 12/05/23 15:30 Oxygen Delivery Non-Rebreather Mask 12/05/23 15:30 Oxygen Flow Rate 10 12/05/23 15:30 Temperature 36.7 C 12/05/23 15:30 Pulse Rate 90 12/05/23 17:00 Respiratory Rate 20 12/05/23 17:00 Blood Pressure 124/88 12/05/23 17:00 Pulse Oximetry 94 12/05/23 17:00 Oxygen Delivery Room Air 12/05/23 16:22 Oxygen Flow Rate 10 12/05/23 15:30 MDM - Overdose Lab Data 12/05/23 17:11 12/05/23 17:11 Labs: Lab Results 12/05/23 Range/Units 17:11 WBC 7.9 (4.8-10.8) K/mm3 RBC 4.34 L (4.70-6.10) M/mm3 Hgb 12.6 L (14.0-18.0) g/dL Hct 38.8 L (40.0-54.0) % MCV 89.4 (78.0-102.0) fL MCH 29.0 (27.0-31.0) pg MCHC 32.5 (32-36) g/dL RDW 12.9 (11.6-14.4) % Plt Count 299 (150-420) K/mm3 MPV 9.0 (8.7-
== END 2023-12-05 18:34 | disposition home or self-care (01) ==
PROVIDERS: Emergency Provider Emergency Medicine
DX: T50.901A Poisoning by unspecified drugs, medicaments and biological substances, accidental (unintentional), initial encounter (principal); F19.10 Other psychoactive substance abuse, uncomplicated; F17.210 Nicotine dependence, cigarettes, uncomplicated
CPT/HCPCS: 36415; 36600; 70450; 80053; 82805; 83605; 83735; 84443; 85025; 85610; 85730; 93005; 96361; 96374; 96375; 99284; J2310; J7030

== ENCOUNTER 2024-03-27 18:38 | Emergency (ER) | payer OTHER, SELFPAY ==
[2024-03-27 18:40] VITALS: BP 136/93; PULSE 82; RESP 20; TEMP 36.7; O2SAT 98
--- NOTE | 2024-03-27 18:44 | ED.WOUNDLAC ---
HPI - Wound/Laceration General Chief Complaint: Wound/Laceration Stated Complaint: stitches removal Source: patient Mode of arrival: ambulatory Limitations: no limitations History of Present Illness HPI narrative: 43 year old male presents to the Emergency Department for suture removal. Patient had sutures placed 03/03 to left forehead. Denies any problems. Onset (ago): week(s) (3.5) Associated symptoms: none Related Data Home Medications Medication Instructions Recorded Confirmed No Home Medications 06/04/20 03/27/24 Allergies Allergy/AdvReac Type Severity Reaction Status Date / Time No Known Allergies Allergy Verified 03/27/24 18:46 Review of Systems Review of Systems: All systems reviewed & are unremarkable except as noted in HPI and below Constitutional: Constitutional: Reports as per HPI Eyes: Eyes: Reports as per HPI ENT: Reports system reviewed and no additional complaints, except as documented Cardiovascular: Cardiovascular: Reports as per HPI Respiratory: Respiratory: Reports as per HPI Gastrointestinal: Gastrointestinal: Reports as per HPI Genitourinary: Genitourinary: Reports no additional male genitourinary complaints Musculoskeletal: Musculoskeletal: Reports no additional musculoskeletal complaints Integumentary/Breasts: Skin/Breast: Reports system reviewed and no additional complaints, except as docu Neurologic: Reports system reviewed and no additional complaints, except as documented PMFSH Past Medical History Medical History Drug abuse No pertinent past medical history Surgical History Surgical History History of appendectomy Family History Family History Mother No problems noted. Father No problems noted. Social History Social History Smoking status: Current every day smoker Additional smoking assessment comments: smokes 1 pack per day Alcohol intake: unknown Alcohol use details: denies alcohol use Substance use: current Substance use type: crack/cocaine Gender identity (if verbalized by the patient): Male Exam Const: General: healthy appearing Nutritional Appearance: well nourished Orientation/consciousness: patient oriented x3 Limitations: no limitations HENMT: Other: sutures in place to left forehead. wound well healed. Eyes: Conjunctivae: conjunctivae normal Pupils: Equal, round and reactive pupils present EOM: EOMs intact bilaterally Direct Ophthalmoscopy: no photophobia Neck: Neck: normal visual inspection Resp: Effort & Inspection: normal respiratory effort Cardio: Rate: regular rate GI: Inspection: non-distended GI Palp: No Tenderness to palpation present (GI) Skin: General skin exam: normal color Rashes: no rashes Neuro: General: patient oriented x3 Other: grossly normal Course Course Emergency Course: 43 y/o male presents to the ED for suture removal. Patient had sutures placed 03/03 to left forehead. PE: laceration well healed Tx: sutures removed Instructions Vital Signs Vital signs: Vital Signs Temperature 36.7 C 03/27/24 18:40 Pulse Rate 82 03/27/24 18:40 Respiratory Rate 20 03/27/24 18:40 Blood Pressure 136/93 H 03/27/24 18:40 Pulse Oximetry 98 03/27/24 18:40 Oxygen Delivery Room Air 03/27/24 18:40 Temperature 36.7 C 03/27/24 18:40 Pulse Rate 82 03/27/24 18:40 Respiratory Rate 20 03/27/24 18:40 Blood Pressure 136/93 H 03/27/24 18:40 Pulse Oximetry 98 03/27/24 18:40 Oxygen Delivery Room Air 03/27/24 18:40 Discharge Plan Discharge Clinical Impression: Encounter for removal of sutures Patient Disposition: Home, Self-Care Condition: Stable Instructions: Stitches Removal (ED) Additional Instructions:
== END 2024-03-27 19:04 | disposition home or self-care (01) ==
PROVIDERS: Emergency Provider Emergency Medicine
DX: Z48.02 Encounter for removal of sutures (principal)
CPT/HCPCS: 15853; 99281

== ENCOUNTER 2024-05-26 10:51 | Outpatient (CLI) | payer OTHER, SELFPAY ==
[2024-05-26 11:18] LABS: Basophils Absolute Auto 0.04 K/mm3 (0.00-0.10); Basophils Percent Auto 0.6 % (0.0-1.0); Eosinophils Absolute Auto 0.23 K/mm3 (0.02-0.50); Eosinophils Percent Auto 3.3 % (1.0-6.0); Hematocrit 40.7 % (40.0-54.0); Hemoglobin 13.5 g/dL (14.0-18.0); Immature Granulocyte Absolute 0.02 K/mm3 (0.00-0.00); Immature Granulocyte Percent A 0.3 % (0.0-0.0); Lymphocytes Absolute Auto 1.45 K/mm3 (1.10-4.50); Mean Corpuscular HGB Conc 33.2 g/dL (32-36); Mean Corpuscular Hemoglobin 29.5 pg (27.0-31.0); Mean Corpuscular Volume 89.1 fL (78.0-102.0); Mean Platelet Volume 9.3 fl (8.7-11.0); Monocytes Absolute Auto 0.83 K/mm3 (0.10-0.90); Neutrophils Absolute Auto 4.32 K/mm3 (1.70-7.20); Neutrophils Percent Auto 62.8 % (50.0-70.0); Platelet Count Result 305 K/mm3 (150-420); Red Blood Count 4.57 M/mm3 (4.70-6.10); Red Cell Distribution Width 12.9 % (11.6-14.4); White Blood Count 6.9 K/mm3 (4.8-10.8)
[2024-05-26 12:01] LABS: Alanine Aminotransferase 39 U/L (16-63); Albumin Level 3.4 g/dL (3.4-5.0); Alkaline Phosphatase 102 U/L (46-116); Anion Gap 5 mmol/L (4-12); Aspartate Amino Transferase 28 U/L (15-37); Bilirubin,Total 0.4 mg/dL (0.00-1.00); Blood Urea Nitrogen 9 mg/dL (7-18); Calcium 8.8 mg/dL (8.5-10.1); Carbon Dioxide 33 mmol/L (21-32); Chloride 102 mmol/L (98-108); Cholesterol 154 mg/dL (0-200); Estimated Glomerular Filt Rate > 60; Glucose 68 mg/dL (70-99); HDL Direct 57 mg/dL (40-60); LDL Cholesterol Calculated 82 mg/dL (<130); Osmolality Calculated 286 mOsm/kg (285-295); Potassium 4.3 mmol/L (3.5-5.1); Sodium 140 mmol/L (136-145); Total Protein 6.6 g/dL (6.4-8.2); Triglycerides 75 mg/dL (0-150)
[2024-05-26 12:03] LABS: Thyroid Stimulating Hormone Reflex 1.52 u/IU/mL (0.36-3.74)
[2024-05-26 12:17] LABS: HIV 1 P24 AG Negative (Negative); HIV 1/2 AB Negative (Negative)
[2024-05-28 06:44] LABS: Hepatitis B Surface Antigen NON-REACTIVE (NON-REACTIVE)
[2024-05-28 07:09] LABS: Hepatitis A Antibody IgM NON-REACTIVE (NON-REACTIVE); Hepatitis B Core Antibody NON-REACTIVE (NON-REACTIVE); Hepatitis C Virus Antibody REACTIVE (NON-REACTIVE)
[2024-05-30 11:33] LABS: Hepatitis C Additional Testing YES
[2024-06-04 14:44] LABS: Hepatitis C RNA, Quant PCR HCV RNA PCR
== END 2024-05-26 10:52 | disposition home or self-care (01) ==
PROVIDERS: PCP Family Medicine; Visit Provider Family Medicine
DX: Z00.00 Encounter for general adult medical examination without abnormal findings (principal); R74.01 Elevation of levels of liver transaminase levels; F19.10 Other psychoactive substance abuse, uncomplicated; E03.9 Hypothyroidism, unspecified
CPT/HCPCS: 36415; 80053; 80061; 80074; 84443; 85025; 87522; 87806

== ENCOUNTER 2024-11-10 08:52 | Emergency (ER) | payer MEDICARE, SELFPAY ==
--- NOTE | ~2024-11-10 | CT_ITS ---
EXAMINATION: CT abdomen pelvis w con DATE: 11/10/2024 10:12 INDICATION: Epigastric abdominal pain. Nausea. TECHNIQUE: Computed tomography (CT) of the abdomen and pelvis was performed with 100 mg Omnipaque 350 intravenous contrast. Automated exposure control and iterative reconstruction technique were employe d. The dose-length product was 205.31 mGy-cm. COMPARISON: None. FINDINGS: The visualized portions of the lung bases demonstrate emphysema. No pleural effusion. The h eart size is normal. No pericardial effusion. There are cysts in the liver measuring up to 5 mm. The gallbladder, spleen, pancreas, adrenal glands are normal. There are cysts in the kidneys measuring up to 7 mm on the left. There are no dilated loops of bowel. There is wall thickening of some loops of small bowel, consistent with enteritis. The appendix is not visualized. There are no pathologically e nlarged lymph nodes. There is a small volume of pelvic ascites. There is mild thoracic and lumbar spo ndylosis. IMPRESSION: 1. Enteritis. 2. Small volume of pelvic ascites. Reviewed, dictated and finalized at location A. [facility] [employer]
[2024-11-10 08:54] VITALS: BP 135/92; PULSE 85; RESP 19; TEMP 36.6; O2SAT 100
--- NOTE | 2024-11-10 09:03 | ECG_ITS ---
Test Date: 2024-11-10 09:00:16 Measurements Intervals [place] Rate: 81 P: 72 MD: 153 QRS: 84 QRSD: 80 T: 80 QT: 360 QTc: 418 Interpretive Statements SINUS RHYTHM No previous ECG available for comparison Electronically Signed On 11-10-2024 14:01:27 [employer] by Andrez Granados M.D.
[2024-11-10 09:19] LABS: Basophils Percent Auto 0.2 % (0.2-1.2); Eosinophils Percent Auto 0.7 % (0-4.4); Hematocrit 46.4 % (42.0-52.0); Hemoglobin 15.4 g/dL (14.0-18.0); Immature Granulocyte Absolute 0.02 K/mm3 (0.00-0.031); Immature Granulocyte Percent A 0.3 % (0-0.5); Lymphocytes Absolute Auto 1.06 K/mm3 (0.9-3.2); Mean Corpuscular HGB Conc 33.2 g/dl (32-36); Mean Corpuscular Volume 87.4 fl (80-100); Mean Platelet Volume 9.4 fl (7.4-10.4); Monocytes Absolute Auto 0.8 K/mm3 (0.1-0.6); Monocytes Percent Auto 13.4 % (2.6-8.5); Neutrophils Percent Auto 67.4 % (45.5-73.1); Platelet Count Result 356 k/mm3 (150-375); Red Blood Count 5.31 M/mm3 (4.6-6.20); Red Cell Distribution Width 12.6 % (11.5-14.5); White Blood Count 5.9 K/mm3 (4.5-10.0)
[2024-11-10 09:30] LABS: Alanine Aminotransferase 23 U/L (6-50); Albumin Level 4.1 g/dL (3.5-5.1); Alkaline Phosphatase 80 U/L (38-126); Anion Gap 14 mmol/L (4-12); Aspartate Amino Transferase 25 U/L (17-59); Bilirubin,Total 0.4 mg/dL (0.2-1.3); Blood Urea Nitrogen 11 mg/dL (9-20); Calcium 9.1 mg/dL (8.4-10.2); Carbon Dioxide 23 mmol/L (22-30); Chloride 105 mmol/L (98-107); Estimated CRCL calculation 109 ml/min; Estimated Glomerular Filt Rate > 60; Glucose 120 mg/dL (65-110); Lipase 27 U/L (23-300); Potassium 3.7 mmol/L (3.4-5.0); Sodium 142 mmol/L (137-145)
--- NOTE | 2024-11-10 09:49 | ED_ITS ---
HPI - Abdominal Pain General Chief Complaint: Abdominal Pain Stated Complaint: cp, epigastric pain Time Seen by Provider: 11/10/24 09:01 Source: patient Mode of arrival: EMS Limitations: no limitations History of Present Illness HPI narrative: Patient is a 43-year-old male who presents the ED via EMS with report of epigastric abdominal pain. Patient reports he did not feel well yesterday and developed this pain this morning. Present in his epigastric region just below his sternum. Does not radiate into his chest. States pain is improved slightly from when it 1st began this morning. Denies aggravating/alleviating factors. Reports intermittent nausea, denies vomiting. Did have some vomiting 2 nights ago. Denies diarrhea, constipation, melena, fevers. Related Data Allergies Allergy/AdvReac Type Severity Reaction Status Date / Time No Known Allergies Allergy Verified 11/10/24 09:04 Review of Systems 2 Review of Systems: All systems reviewed & are unremarkable except as noted in HPI. All systems reviewed & are unremarkable except as noted in HPI and below PMFSH Past Medical History Medical History Dental caries Toothache Drug abuse No pertinent past medical history Surgical History Surgical History History of appendectomy Family History Family History Mother No problems noted. Father No problems noted. Social History Social History Smoking status: Current every day smoker Additional smoking assessment comments: smokes 1 pack per day Alcohol intake: unknown Alcohol use details: denies alcohol use Substance use: current Substance use type: marijuana and crack/cocaine Gender identity (if verbalized by the patient): Male Exam 2 Narrative: GENERAL: Mildly unkempt, non-toxic, in no acute distress. HEAD: Normocephalic, atraumatic. RESPIRATORY: Airway patent, respirations nonlabored. Clear to auscultation bilaterally, no rales, rhonchi, wheezing. CARDIOVASCULAR: Regular rate and rhythm without murmurs, rubs, or gallops. ABDOMINAL: Soft, tenderness to palpation in left lower quadrant, epigastric region, nondistended. Normoactive BS. MUSCULOSKELETAL: Moves all extremities. No gross deformities. SKIN: Warm, dry, normal color. NEURO: A&O X3. Speech clear. PSYCHIATRIC: Appropriate mood and affect. Normal interaction. Course Vital Signs Vital signs: Vital Signs Temperature 97.8 F 11/10/24 08:54 Pulse Rate 85 11/10/24 08:54 Respiratory Rate 19 11/10/24 08:54 Blood Pressure 135/92 H 11/10/24 08:54 Pulse Oximetry 100 11/10/24 08:54 Oxygen Delivery Room Air 11/10/24 08:54 Temperature 97.9 F 11/10/24 11:22 Pulse Rate 82 11/10/24 11:22 Respiratory Rate 18 11/10/24 11:22 Blood Pressure 134/88 11/10/24 11:22 Pulse Oximetry 98 11/10/24 11:22 Oxygen Delivery Room Air 11/10/24 08:54 MDM - Abdominal Pain MDM Narrative Medical decision making narrative: Patient presented to ED with epigastric abdominal pain began this morning. Vital signs are stable upon arrival. He is in no acute distress. Does appear mildly unkempt. Cbc without leukocytosis or anemia. CMP with anion gap of 14. Otherwise unremarkable. Blood glucose 120. Stable kidney function. Stable electrolytes. Normal LFTs and lipase. EKG with NSR, no ischemic changes. Troponin undetectable. CT of abdomen/pelvis obtained and showing enteritis. Patient given GI cocktail and Tylenol in the ED. On re-evaluation, he is feeling improved. Pain nearly resolved. Discussed lab and imaging findings, likelihood of gastroenteritis given symptoms today and vomiting few days ago. Feel patient is safe for discharge home at this time. Will discharge with Bentyl and Zofran for home use. Recommended follow-up with PCP for further evaluation. Given return precautions. He agrees with plan. Discharged in stable condition. Medical Records Attestation: I reviewed the patient's medical records. Lab Data Attestation: I reviewed the patient's lab results. 11/10/24 09:13 11/10/24 09:13 Labs: Lab Results 11/10/24 Range/Units 09:13 WBC 5.9 (4.5-10.0) K/mm3 RBC 5.31 (4.6-6.20) M/mm3 Hgb 15.4 (14.0-18.0) g/dL Hct 46.4 (42.0-52.0) % MCV 87.4 (80-100) fl MCH 29.0 (26-34) pg MCHC 33.2 (32-36) g/dl RDW 12.6 (11.5-14.5) % Plt Count 356 (150-375) k/mm3 MPV 9.4 (7.4-10.4) fl Immature Gran % (Auto) 0.3 (0-0.5) % Neut % (Auto) 67.4 (45.5-73.1) % Lymph % (Auto) 18.0 L (18.3-44.2) % [place] % (Auto) 13.4 H (2.6-8.5) % Eos % (Auto) 0.7 (0-4.4) % Baso % (Auto) 0.2 (0.2-1.2) % Lymph # (Auto) 1.06 (0.9-3.2) K/mm3 [place] # (Auto) 0.8 H (0.1-0.6) K/mm3 Eos # (Auto) 0.0 (0-0.3) K/mm3 Baso # (Auto) 0.0 (0.0-0.1) K/mm3 Abs Immat Gran (auto) 0.02 (0.00-0.031) K/mm3 Absolute Neuts (auto) 4.0 (1.3-6.7) K/mm3 Absolute Nucleated RBC 0.000 (0.0-0.012) K/mm3 Nucleated RBC % 0.0 (0.0-0.2) % Sodium 142 (137-145) mmol/L Potassium 3.7 (3.4-5.0) mmol/L Chloride 105 (98-107) mmol/L Carbon Dioxide 23 (22-30) mmol/L Anion Gap 14 H (4-12) mmol/L BUN 11 (9-20) mg/dL Creatinine 0.64 L (0.7-1.3) mg/dL Estim Creat Clear Calc 109 ml/min Estimated GFR > 60 (59 - ) Glucose 120 H (65-110) mg/dL Calcium 9.1 (8.4-10.2) mg/dL Total Bilirubin 0.4 (0.2-1.3) mg/dL AST 25 (17-59) U/L ALT 23 (6-50) U/L Alkaline Phosphatase 80 (38-126) U/L Troponin I < 0.012 (0.000-0.034) ng/mL Total Protein 7.0 (6.3-8.2) g/dL Albumin 4.1 (3.5-5.1) g/dL Lipase 27 (23-300) U/L Imaging Data Attestation: I personally reviewed and interpreted this imaging study as follows: Radiologist's impression: ITS Impressions Abdomen/Pelvis CT 11/10/24 10:29 IMPRESSION: 1. Enteritis. 2. Small volume of pelvic ascites. ECG Data EKG #1: Attestation: I personally reviewed and interpreted this ECG as follows: ECG completion date: 11/10/24 ECG completion time: 09:00 normal rate (81), sinus rhythm and no ST changes Discharge Plan Discharge Clinical Impression: Epigastric abdominal pain, Gastroenteritis Patient Disposition: Home, Self-Care Condition: Stable Instructions: Antibiotic Form, Gastroenteritis (ED), Epigastric Pain (ED) Additional Instructions: Utilize zofran as needed for further nausea. Continue Tylenol, Bentyl as needed for further abdominal discomfort. Increase fluid intake. Recommend electrolyte rich fluids, gatorade, pedialyte, body armour. Recommend clear liquids or bland diet until symptoms improve, such as bananas, rice, applesauce, toast, or crackers. Follow up with your primary care doctor for further evaluation. Return to the ED if you experience worsening or severe symptoms, chest pain, difficulty breathing, unable to keep down food or drink, severe pain, fevers, rectal bleeding, vomiting blood, or any other symptoms of concern. Patient Language: B[place] Prescriptions: New dicyclomine 20 mg tablet 20 mg PO TID PRN (Reason: Abdominal Discomfort) Qty: 15 0RF ondansetron 4 mg tablet,disintegrating 4 mg PO Q8H PRN (Reason: nausea and vomiting) Qty: 15 0RF No Action nicotine 21 mg/24 hr patch 24 hour 1 patch transdermal DAILY Qty: 28 0RF Follow-up/Referrals: Chavez Vera DO [Primary Care Provider] - Stand Alone Forms: Work/School Release IP Time of Disposition: :06
[2024-11-10 10:25] LABS: Troponin I < 0.012 ng/mL (0.000-0.034)
[2024-11-10] MEDS: BELLADONNA ALK/PHENOB ELIX 10 ML, MAG HYDROX/ALUMINUM HYD/SIMETH 30 ML, LIDOCAINE 2% VI... PO (10:32)
[2024-11-10] MEDS: ACETAMINOPHEN 500 MG TABLET 1000 MG PO (10:32)
[2024-11-10 10:37] VITALS: BP 137/94; PULSE 79; RESP 20; O2SAT 100
[2024-11-10 11:22] VITALS: BP 134/88; PULSE 82; RESP 18; TEMP 36.6; O2SAT 98
== END 2024-11-10 11:25 | disposition home or self-care (01) ==
PROVIDERS: Emergency Medicine; Emergency Provider Physician Assistant; PCP Family Medicine
DX: K52.9 Noninfective gastroenteritis and colitis, unspecified (principal); F17.210 Nicotine dependence, cigarettes, uncomplicated
CPT/HCPCS: 36415; 74177; 80053; 83690; 84484; 85025; 93005; 99284; A9270; Q9967

== ENCOUNTER 2025-04-27 02:35 | Emergency (ER) | payer MEDICARE, MEDICAID, SELFPAY ==
--- NOTE | ~2025-04-27 | CT_ITS ---
Non-contrast Head CT History: Confusion Technique: Axial non-contrast imaging of the brain was performed. Dose reduction technique was used on this scan by utilizing automated exposure control and iterative reconstruction technique. The dose-length product (DLP) was 681.00 mGy-cm. Findings: There is no evidence of intracranial hemorrhage, mass lesion, or acute infarct. Brain parenchyma appears normal. The ventricles and subarachnoid spaces are normal in size. The calvarium appears normal. The visualized paranasal sinuses and mastoid air cells are clear. Impression: No significant abnormality seen. Reviewed, dictated and finalized at location . Impression: No significant abnormality seen.
[2025-04-27 02:35] VITALS: BP 151/83; PULSE 86; RESP 20; TEMP 36.6; O2SAT 97
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
--- NOTE | 2025-04-27 03:04 | PC.NURSE ---
patient stated to [employer] that he has a hx of brain cancer, had brain surgery and has a hx of sz, but is not on medication, just smokes marijuana for his symptoms.
[2025-04-27 03:18] LABS: Hematocrit 42.7 % (40.0-54.0); Hemoglobin 13.6 g/dL (14.0-18.0); Immature Granulocyte Percent A 0.4 % (0.0-0.0); Lymphocytes Absolute Auto 1.26 K/mm3 (1.10-4.50); Mean Corpuscular HGB Conc 31.9 g/dL (32-36); Mean Corpuscular Hemoglobin 28.6 pg (27.0-31.0); Mean Corpuscular Volume 89.9 fL (78.0-102.0); Nucleated Red Blood Cells Absolute Auto 0.00 K/mm3 (0.00-0.00); Nucleated Red Blood Cells Perc 0.0 % (0-0.0); Platelet Count Result 371 K/mm3 (150-420); Red Blood Count 4.75 M/mm3 (4.70-6.10); White Blood Count 11.5 K/mm3 (4.8-10.8)
[2025-04-27 03:33] LABS: Alanine Aminotransferase 26 U/L (6-50); Albumin Level 4.7 g/dL (3.5-5.1); Alkaline Phosphatase 73 U/L (38-126); Anion Gap 9 mmol/L (4-12); Aspartate Amino Transferase 34 U/L (17-59); Bilirubin,Total 0.2 mg/dL (0.2-1.3); Blood Urea Nitrogen 19 mg/dL (9-20); Calcium 9.8 mg/dL (8.4-10.2); Carbon Dioxide 34 mmol/L (22-30); Chloride 99 mmol/L (98-107); Estimated CRCL calculation 77 ml/min; Estimated Glomerular Filt Rate > 60; Glucose 106 mg/dL (65-110); Osmolality Calculated 296 mOsm/kg (285-295); Potassium 4.7 mmol/L (3.4-5.0); Sodium 142 mmol/L (137-145); Total Protein 7.9 g/dL (6.3-8.2)
[2025-04-27 03:39] LABS: Lipase 35 U/L (23-300)
[2025-04-27 03:54] LABS: Troponin I < 0.012 ng/mL (0.000-0.034)
[2025-04-27] MEDS: LACTATED RINGERS 1,000 ML 999 ML IV CONT (04:14)
[2025-04-27 05:42] LABS: Add Urine Microscopic? NO; Appearance Urine Clear (Clear); Glucose Urine UA Negative (Negative); Leukocyte Esterase Ur Negative LEU/UL (Negative); Nitrate Urine Negative (Negative); Specific Grav Ur 1.010 (1.010-1.020)
[2025-04-27 07:17] VITALS: BP 107/69; PULSE 75; RESP 18; TEMP 36.7; O2SAT 94
== END 2025-04-27 07:17 | disposition home or self-care (01) ==
PROVIDERS: Emergency Provider Internal Medicine Critical Care Medicine; PCP Family Medicine
DX: R41.82 Altered mental status, unspecified (principal); F17.210 Nicotine dependence, cigarettes, uncomplicated; Z98.890 Other specified postprocedural states
CPT/HCPCS: 36415; 70450; 80053; 81003; 83605; 83690; 84484; 85025; 96360; 99284; J7120